=== PATIENT | female | born 1950 | race Caucasian/White ===

== ENCOUNTER 2022-08-26 14:05 | Outpatient (CLI) | payer MEDICARE, SELFPAY ==
--- NOTE | 2022-08-26 14:30 | MR_ITS ---
[facility] [address] [facility] [address] Phone:?[phone] Fax:?[phone] Referring Physician Information: Rodney Carrero [address] [facility] [address] Phone:?[phone] Fax:?[phone] Patient:?Taylor Cat D.O.B:?1950 Sex:?Female Phone:?[phone] [facility] MRN:?[id number] Exam Date:?08/26/2022 ? EXAM: MRI of the RIGHT SHOULDER, without contrast CLINICAL: Right shoulder pain and decreased range of motion. Evaluate for rotator cuff tear and adhesive capsulitis. COMPARISONS: None available. TECHNICAL: MRI sequences of the right shoulder: Axials: PD, PDFS Coronals: PD, T2FS Sagittals: PDFS, T2 SEDATION: None. CONTRAST: None. FINDINGS: Rotator cuff: Supraspinatus/Infraspinatus: Mild to moderate tendinosis of the distal supraspinatus tendon with high-grade partial interstitial/articular surface tearing of the distal supraspinatus tendon on coronal series 4 image 9-10 involving approximately 70% of the tendon thickness. Mild to moderate tendinosis with mild partial interstitial tearing of the distal infraspinatus tendon. No significant fatty atrophy of the muscle bellies. Teres minor: No tendinosis, tear or atrophy. Subscapularis: No tendinosis, tear or atrophy. Bursae: Subacromial-subdeltoid: Mild bursitis. Subcoracoid: No convincing subcoracoid bursal thickening/bursitis. Coracoacromial arch: Acromion morphology: Type II and laterally downsloping. No os acromiale. Acromiohumeral space: Mildly narrowed. Coracohumeral space: Within normal limits. Biceps tendon, long head: Mild tendinosis of the intra-articular tendon. No evidence of significant tendon tear or displacement. Glenohumeral joint: Physiologic volume of joint fluid. Articular cartilage: Mild glenohumeral chondral thinning without discrete chondral defects identified. Capsule: No convincing evidence of capsular thickening or injury. Labrum: There is degenerative attenuation of the posterior as well as the inferior labrum. Mild degenerative fraying of the superior labrum. No perilabral cyst identified. Bones: No suspicious marrow signal alteration, fracture or dislocation. Acromioclavicular joint: Minimal changes of arthrosis. No AC joint injury/widening. IMPRESSION: 1. Mild to moderate tendinosis with superimposed partial tearing of the distal supraspinatus and infraspinatus tendons as above. 2. Mild subacromial/subdeltoid bursitis. 3. Mild tendinosis of the intra-articular long head biceps tendon. 4. Degenerative changes of the glenoid labrum. 5. Minimal AC joint arthrosis. JCZ Electronically signed on 08/27/2022 7:40:00 AM by Jose Maria Forrester D.O.
== END 2022-08-26 14:06 | disposition home or self-care (01) ==
PROVIDERS: PCP Physician Assistant Medical; Visit Provider Physician Assistant Medical
DX: M25.511 Pain in right shoulder (principal); M75.101 Unspecified rotator cuff tear or rupture of right shoulder, not specified as traumatic; M19.011 Primary osteoarthritis, right shoulder; M75.51 Bursitis of right shoulder
CPT/HCPCS: 73221

== ENCOUNTER 2022-09-11 16:47 | Outpatient (CLI) | payer MEDICARE, SELFPAY ==
[2022-09-11 23:24] LABS: Vitamin B12* 816 pg/mL (243-894)
== END 2022-09-11 16:48 | disposition home or self-care (01) ==
PROVIDERS: PCP Physician Assistant Medical; Visit Provider Physician Assistant Medical
DX: D64.9 Anemia, unspecified (principal)
CPT/HCPCS: 82607; 83540; 83550

== ENCOUNTER 2022-09-16 09:27 | Outpatient (CLI) | payer MEDICARE, SELFPAY ==
[2022-09-16 13:11] LABS: Iron* 127 ug/dL (37-170)
[2022-09-16 13:20] LABS: Percent Iron Saturation 38 % (20-50); Total Iron Binding Capacity 338 ug/dL (265-497)
== END 2022-09-16 09:28 | disposition home or self-care (01) ==
PROVIDERS: PCP Physician Assistant Medical; Visit Provider Physician Assistant Medical
DX: D64.9 Anemia, unspecified (principal)
CPT/HCPCS: 83540; 83550

== ENCOUNTER 2022-09-26 09:22 | Day surgery (SDC) | payer MEDICARE, SELFPAY ==
[2022-09-26] VITALS (13 sets, daily range): BP systolic 124–149; BP diastolic 61–75; PULSE 75–86; RESP 16–20; TEMP 36.2–37.4; O2SAT 94–98; BMI 20.2
[2022-09-26] MEDS: LACTATED RINGERS 1000 ML 1,000 ML 100 ML IV ×2 (10:00→13:04)
[2022-09-26] MEDS: MIDAZOLAM HCL 1 MG/ML inj IVP (10:27)
[2022-09-26] MEDS: fentaNYL 100 MCG/2 ML inj IVP (10:27)
[2022-09-26] MEDS: SODIUM CHLORIDE 0.9 % (FLUSH) 10 ML SYRINGE IVF (10:35)
--- NOTE | 2022-09-26 10:36 | SUR.PREOP ---
home covid test negative
--- NOTE | 2022-09-26 11:30 | SUR.PREOP ---
TIME?OUT:?1124, right shoulder PT/RN/MDA?VERIFICATION?OF?SURGICAL?SITE,?PROCEDURE,?AND?CONSENT OBTAINED?PRIOR?TO?INVASIVE?PROCEDURE.
[2022-09-26] MEDS: CEFAZOLIN 2 GM in 0.9 % SODIUM CHLORIDE Mini-bag 100 ML IVPB (11:55)
--- NOTE | 2022-09-26 13:16 | P.ORPRC_ITS ---
Procedure Note Date of procedure: 09/26/22 Procedure: PREOPERATIVE DIAGNOSES: 1. Right shoulder rotator cuff tear. 2. Right shoulder AC degenerative joint disease, moderate-severe 3. Right shoulder subacromial impingement syndrome. POSTOPERATIVE DIAGNOSES: 1. Right shoulder rotator cuff tear - supraspinatus high-grade partial- thickness tear 2. Right shoulder AC degenerative joint disease, moderate-severe 3. Right shoulder anterior and superior degenerative labral fraying and tearing 4. Right shoulder low-grade partial-thickness subscapularis tearing 5. Right shoulder subacromial impingement syndrome. NAME OF OPERATION: 1. Right shoulder arthroscopic rotator cuff repair - 1 medial and 1 lateral anchor for the supraspinatus tear 2. Right shoulder arthroscopic distal clavicle excision 3. Right shoulder arthroscopic extensive glenohumeral debridement 4. Right shoulder arthroscopic bursectomy, subacromial decompression/partial acromioplasty. SURGEON: Pete Sauer MD [employer] SUPERVISOR: Ramone Bustillo PA-C. Of note, a skilled sociology research assistant was critical for this case to aide in patient positioning, suture manipulation, arm positioning, instrument positioning, and closure. ANESTHESIA: General plus preoperative supraclavicular block. EBL: Less than 25 mL IMPLANTS: Arthrex 2.6 mm FiberTak RC 0 (x1); 5.5 mm BioComposite SwiveLock suture anchor (x1) COMPLICATIONS: None evident INDICATIONS: The patient is a pleasant, 72-year-old female who has experienced right shoulder pain that has been increasing in recent time. Physical exam and imaging were consistent with a rotator cuff tear. Given their findings, as well as the weakness and pain, and inadequate response to nonoperative management, recommendation was made for surgery. FINDINGS: Exam under anesthesia revealed stable shoulder with excellent range of motion. The diagnostic arthroscopy revealed healthy chondral surfaces of the glenohumeral joint. The Subscapularis tendon was torn in a low-grade partial- thickness manner and its upper border on the deep surface only. Majority the tissue was clearly still intact and selby. The long head of the biceps tendon was intact. The superior rotator cuff tendon was found to be torn and high- grade partial-thickness manner more so on the deep surface but to some degree in the superficial/bursal surface as well. The labrum was degeneratively frayed in the anterior and superior aspects. No loose bodies were identified within the pouch or subscapularis recess. PROCEDURE: Following a thorough discussion of risks, benefits, and alternatives, consent was obtained and the right shoulder was marked. The patient was brought to the operating room and placed supine on the operating table. Induction of anesthesia was completed after preoperative supraclavicular block was administered in preop holding. Appropriate time out was performed identifying proper patient, site, and procedure. 2 g IV Ancef was administered within 1 hour of incision preoperatively. The right upper extremity was prepped and draped in the appropriate sterile fashion using ChloraPrep prep. This was after the patient was positioned in the beach chair with their head in neutral alignment and all bony prominences well padded. The shoulder was insufflated with 20mL of normal saline via an 18g spinal needle from a posterior approach. An 11 blade skin incision allowed a blunt trochar to be inserted and diagnostic arthroscopy to be performed with the findings as noted above. An anterior portal was established with an outside in technique. This allowed the probe to be inserted and confirm the diagnostic arthroscopic findings. The shaver was then inserted and allowed debridement of the anterior and superior labrum as well as the deep surface of the subscapularis rotator cuff low-grade partial-thickness tearing. In the humeral lesser tuberosity bone was also debrided mildly to try to stimulate healing for this low-grade partial-thickness subscap tear. Following this, the upper border subscapularis was probed and found to be stable otherwise. Thereafter, the subacromial space was entered. Here, a complete bursectomy and partial acromioplasty/subacromial decompression was performed with a combination of radiofrequency ablator, the shaver, and a 5.5 mm bur. Additionally, distal clavicle excision was performed with the bur. 8 mm of distal clavicle was resected based on the with of our bur. Further inspection of the supraspinatus and infraspinatus rotator cuff was performed. This identified the tear as noted above. The margins of the tear were debrided, and the greater tuberosity was debrided with a combination of the apollo cautery, shaver, and bur on reverse setting. [After gentle decortication, FiberTak RC was placed along the medial row following debridement of the high-grade partial-thickness tear. The 4 tails were passed independently and all 4 tails were brought to a single 5.5 mm anchor laterally with excellent footprint compression across the greater tuberosity. The shoulder was placed through range of motion and found to be stable. The rotator cuff was re-probed and found to be stable. Instruments were removed. Excess fluid was drained, closure performed with 4-0 Monocryl and Steri-Strips. Dressings were applied. Sling was applied. The patient was awoken from anesthesia and transferred to the PACU in stable condition. A skilled sociology research assistant was critical for this case to aid in patient positioning, limb positioning, skill to manipulate arthroscopic instruments and camera, suture management, patient safety, and closure. PLAN: 1. Elbow, forearm, wrist and digit range of motion as tolerated. 2. Encouraged ice. 3. Percocet for pain as needed. 4. Sling at all times except for ROM and showering. 5. Follow up with PA visit in 1-2 weeks for wound check. Initiate physical therapy following that visit for passive range of motion. Initiate active assisted range of motion at 2-3 weeks. May do pendulums now.
--- NOTE | 2022-09-26 13:22 | W.PM.NB ---
Nerve Block Nerve Block Time Seen by Provider: 11:29 Date Seen: 09/26/22 Type of block requested by surgeon for post-operative analgesia: supraclavicular Side: right Time out performed: Yes Verification of patient name: Yes Verification of date of : Yes Site marking: site marked Name of person performing procedure: Chepe Continuous monitoring Was continuous monitoring of O2 sat, B/P, quality assurance monitor body, recorded every 15 minutes?: Yes Procedure Checklist: sterile prep, needles and gloves Ultrasound guided. Images saved: Yes Medications given in 5ml increments after negative aspiration: Ropivicaine %: 0.5 mL: 20 Needle gauge: 22 Decadron (mg): 10 Precedex (mcg): 25 Patient tolerated procedure well: Yes Block Charges Block Charge (with Pro Fee): Brachial Plexus Use of Ultrasound Machine for Block: Yes- US Guidance/pain block
--- NOTE | 2022-09-26 13:28 | W.ANESCHARGE ---
Anesthesia Charges Start Date/Time Anesthesia Start Date: 09/26/22 Anesthesia Start Time: 11:44 Stop Date/Time Anesthesia Stop Date: 09/26/22 Anesthesia Stop Time: 13:26 Summary Emergency: No Extremes of Age: Over 72-CPT [address]
== END 2022-09-26 15:02 | disposition home or self-care (01) ==
PROVIDERS: PCP Physician Assistant Medical; Visit Provider Orthopaedic Surgery Sports Medicine
PROC: (CPT 29805; principal; 2022-09-26 11:30)
DX: M75.101 Unspecified rotator cuff tear or rupture of right shoulder, not specified as traumatic (principal); M19.011 Primary osteoarthritis, right shoulder; M75.41 Impingement syndrome of right shoulder; S43.431A Superior glenoid labrum lesion of right shoulder, initial encounter
CPT/HCPCS: 29827; 29826; 29823; 29824; 01630; 64415; 76942; 99100; C1713; J0330; J0690; J1100; J2250; J2370; J2405; J2704; J2795; J2930; J3010; J7120

== ENCOUNTER 2022-10-04 11:02 | Emergency (ER) | payer MEDICARE, SELFPAY ==
[2022-10-04 11:11] VITALS: BP 149/65; PULSE 85; RESP 18; TEMP 36; O2SAT 98; BMI 20.5
--- NOTE | 2022-10-04 11:59 | ED_ITS ---
HPI - General Adult General Chief complaint: Edema Stated complaint: Both lower extremities swollen post surgery Time Seen by Provider: 10/04/22 11:15 History of Present Illness HPI narrative: This 72-year-old female comes in with concern about some bilateral pedal edema over the past few days. She had a rotator cuff repair done on her right shoulder about a week ago. Her activity has decreased some in this time of recovery. She does not have a history of heart failure. She does have a history of lupus and is taking prednisone. She has some concern about her kidney function but states that it has been doing well over the past 25 years. She had her blood checked about a month ago and her creatinine was 0.8. She does not report any chest pain or shortness of breath. Related Data Home Medications Medication Instructions Recorded Confirmed estradiol 0.5 mg tablet 0.5 mg PO QDAY 08/20/22 10/03/22 prednisone 5 mg tablet 15 mg PO QDAY 08/20/22 10/03/22 progesterone micronized 100 mg 100 mg PO QAM 08/20/22 10/03/22 capsule Previous Rx's Medication Instructions Recorded ondansetron 4 mg disintegrating 4 mg PO Q8H #15 tabs 09/26/22 tablet oxycodone-acetaminophen 5 mg-325 1 tab PO Q4-8H PRN pain #15 tabs 09/26/22 mg tablet (Percocet) furosemide 20 mg tablet (Lasix) 20 mg PO DAILY #10 tabs 10/04/22 Allergies Allergy/AdvReac Type Severity Reaction Status Date / Time codeine AdvReac Unknown Nausea Verified 09/26/22 10:03 Review of Systems Status of ROS: Reports: 10 or more systems reviewed and unremarkable except as noted in History and below Narrative: Constitutional: No fevers, no weight gain or loss. Eyes: No discharge. No vision changes. HENT: No congestion, no sore throat, no ear pain. Cardiovascular: No chest pain, no palpitations. Respiratory: No shortness of breath, no wheezes, no cough. Gastrointestinal: No abdominal pain, no vomiting, no diarrhea. Genitourinary: No dysuria, no hematuria. Musculoskeletal: Right shoulder is in a sling status post surgery. Skin: No rashes, no pruritis. Neurological: No dizziness, weakness, sensory change, speech change. Endo/Heme/Allergies: No bruising or bleeding. No polydipsia. Pysch: no suicidality, no anxiety, no insomnia. All other systems reviewed and are negative. PFSH PFSH Surgical History (Updated 09/29/22 @ 10:19 by Kaila Valdez) Hx of fusion of cervical spine (~2019) Status post arthroscopy of right shoulder (09/26/22) Family History (Updated 08/20/22 @ 18:14 by Alexa Doss PA-C) Sister Colon cancer, Onset Age: 50 Father Prostate cancer Mother Heart disease Family/Other Heart disease Social History Smoking Status: Never smoker How often do you have a drink containing alcohol: never AUDIT-C Alcohol total score: 0 Non-prescribed substance use: denies use Caffeine: Yes Exam Narrative: Exam Narrative: Constitutional: Well-developed, well-nourished, no acute distress. HEENT: Normocephalic, atraumatic. Neck: Normal range of motion. Nontender. Supple. Heart: Regular. No murmurs. Normal rate. Intact distal pulses. Lungs: Clear to auscultation. No chest discomfort. No wheezes, rhonchi, or rales. Abdomen: Normal bowel sounds. Nontender. No rebound tenderness. Genitalia: Deferred. Back: No midline tenderness. Normal range of motion. Extremities: Right shoulder is in a sling status post surgery. Mild pedal edema bilaterally. Skin: Intact. No rash. Warm. No erythema or pallor. Neurologic: No altered sensation. No weakness. Alert and oriented. Psychiatric: No suicidality. No anxiety or depression. No insomnia. Nursing notes and vitals signs are reviewed. Const: Vital Signs, click to edit/add: Vital Signs - 24 hr 10/04/22 11:11 Temperature 96.8 F L Pulse Rate [Right Pulse Oximeter] 85 Respiratory Rate 18 Blood Pressure [Ri ght Upper Arm] 149/65 H Pulse Oximetry 98 Oxygen Delivery Me thod Room Air Course Vital Signs Vital signs: Initial Vital Signs Temperature 96.8 F L 10/04/22 11:11 Temperature Source Temporal Artery Scan 10/04/22 11:11 Pulse Rate 85 10/04/22 11:11 Respiratory Rate 18 10/04/22 11:11 Blood Pressure 149/65 H 10/04/22 11:11 Blood Pressure Mean 93 10/04/22 11:11 Blood Pressure Position Sitting 10/04/22 11:11 Pulse Oximetry 98 10/04/22 11:11 Oxygen Delivery Method 10/04/22 11:11 Vital Signs Temperature 96.8 F L 10/04/22 11:11 Pulse Rate 85 10/04/22 11:11 Respiratory Rate 18 10/04/22 11:11 Blood Pressure 149/65 H 10/04/22 11:11 Pulse Oximetry 98 10/04/22 11:11 Oxygen Delivery Method 10/04/22 11:11 Temperature 96.8 F L 10/04/22 11:11 Pulse Rate 85 10/04/22 11:11 Respiratory Rate 18 10/04/22 11:11 Blood Pressure 149/65 H 10/04/22 11:11 Pulse Oximetry 98 10/04/22 11:11 Oxygen Delivery Method 10/04/22 11:11 Medical Decision Making MDM Narrative Medical decision making narrative: This patient comes in with concern about some fluid retention in her lower extremities. She has rather mild pedal edema bilaterally. She does not have any other complaints beyond her typical recovery from shoulder surgery. I did offer checking labs and this was declined in a process of shared decision making. She has had normal renal function and most recent lab value was in normal range. She is not showing signs of heart failure. I did prescribe a few tablets of Lasix to assist in diuresis. I encouraged activity and keeping her legs elevated when reclining. Discharge Plan Discharge Clinical Impression: Pedal edema Patient Disposition: Home, Self-Care Condition: Stable Additional Instructions: Take medication as needed and indicated for diuresis. Follow up with MD as scheduled or return if worsening. Prescriptions: New furosemide [Lasix] 20 mg tablet 20 mg PO DAILY Qty: 10 2RF No Action prednisone 5 mg tablet 15 mg PO QDAY progesterone micronized 100 mg capsule 100 mg PO QAM Rx Instructions: off 7 days; repeat cycle estradiol 0.5 mg tablet 0.5 mg PO QDAY Rx Instructions: off 5 days; repeat cycle oxycodone-acetaminophen [Percocet] 5-325 mg tablet 1 tab PO Q4-8H PRN (Reason: pain) Qty: 15 0RF ondansetron 4 mg tablet,disintegrating 4 mg PO Q8H Qty: 15 0RF Follow Up/Referrals: Alexa Doss PA-C [Primary Care Provider] - Stand Alone Forms: [employer] Info Instructions
[2022-10-04 12:09] VITALS: BP 149/65; PULSE 85; RESP 18; TEMP 36
== END 2022-10-04 12:10 | disposition home or self-care (01) ==
PROVIDERS: Emergency Provider Emergency Medicine Emergency Medical Services; PCP Physician Assistant Medical
DX: R60.0 Localized edema (principal)
CPT/HCPCS: 99283; 99284

== ENCOUNTER 2022-10-13 12:39 | Outpatient (CLI) | payer MEDICARE, SELFPAY ==
--- NOTE | 2022-10-13 13:00 | CRLHL7_ITS ---
For Patients: As a result of the Century Cures Act, medical imaging exams and procedure reports are released immediately into your electronic medical record. You may view this report before your referring provider. If you have questions, please contact your health care provider. INDICATION: TECHNIQUE: Ultrasound venous duplex lower extremity bilateral. Compression venous exam was performed using yap scale, color Doppler, and spectral Doppler imaging. COMPARISON: None. FINDINGS: Sonographic imaging demonstrates the common femoral, deep femoral, superficial femoral, popliteal, posterior tibial and greater saphenous veins to be fully compressible with normal color Doppler blood flow in both lower extremities. IMPRESSION: Normal bilateral lower extremity venous ultrasound, no sign of deep venous thrombosis. Dictated by: Eliu Bruno MD @ 10/14/2022 09:25:31 (Electronically Signed)
== END 2022-10-13 12:40 | disposition home or self-care (01) ==
LOC: US 12:40
PROVIDERS: PCP Physician Assistant Medical; Visit Provider Physician Assistant Medical
DX: R60.0 Localized edema (principal)
CPT/HCPCS: 93970

== ENCOUNTER 2022-12-17 11:15 | Outpatient (RCR) | payer MEDICARE, SELFPAY ==
--- NOTE | 2022-10-16 09:01 | PT.OPE ---
[facility] Outpatient Eval PT [facility] Outpatient Eval Start: 10/14/22 10:23 Freq: Status: Active Protocol: Document 10/14/22 10:24 BMS (Rec: 10/14/22 18:19 BMS [id number]) E-signed By Ratna Willard PT Physical Therapy Outpatient Evaluation Insurance Information Recert Due Date 01/11/23 Insurance Information/Comments medicare advantage Provider Fax Number internal Medical Diagnosis post procedural Z98.890 s/p arthroscopy of R shoulder Treating Diagnosis R shoulder pain M25.511 Referring MD Kenyetta Mayorga PA-C (internal referral) Subjective Subjective was in [place] caring for very active 20# kimber, Jun 2022 , for 5 days. went to ED bc of pain in shoulder . have hx of neck fusion thought it was that. they have been wanting to schedule fusion of C 4-5 now but am doing out of pocket stem cell treatments that has staved that off for 5 years. pain about 5/10, trying not to take anything for pain, use ice some. am doing pendulums but they hurt. had surgery R RCR, DCE on 09/26. went back to ED on due to swelling in both feet and legs, have lupus and kidney disease they monitor so wanted to have it checked. 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 Precautions Treatment Precautions/Contraindications R RCR DCE arthroscopy hx cadaver fusion 1999 C67 now want to fuse C4-5 but patient has been doing stem cell treatments out of pocket lupus - prednisone for 40 years. kidney disease Therapy Limitations/Systems Review Other Medical Problem Objective Range of Motion neck rotation and ext limited R shoulder flex before and after 95/120 abduct 60/80 ER 10/20 IR to tummy elbow ext lack 10/lack 5 Strength not assessed due to recent surgery Palpation mild tender to mod in pec/ant shoulder and into RC. Posture head forward, some scap rolling forward, UE in sling Sensation/Reflexes appears intact to light touch Other/Pertinent Objective incisions clean and healing well under glue . Assessment Assessment/Impression Patient is very pleasant 72 yo female referred to rehab services s/p R RCR DCE on 09/26. Initial injury specific event not known, noted in Jun 2022 while helping with 20# kimber. gradually got worse , thought it was from her neck as she has hx of cervical fusion and recommendation to fuse 2 more levels. Thought to be shoulder, went to ortho. Did present to ED s/p surgery due to increased B edema, was cleared for DVT. Has + medical hx of lupus (prednisone x 40 years), kidney dysfunction, cspine fusion C6-7 and receiving stem cell treatments due to ongoing neck pain. She is normally very active and looks forward to resuming prior level of function independently - all functional use of dominant R arm is severely limited at this time. Patient is appropriate for skilled physical therapy to restore ROM functional strength and use of dominant arm. Primary Functional Limitations all use of dominant arm, sleep , pain Plan of Care Rehabilitation Potential Good Rehabilitation Potential Comments very motivated Physical Therapy Goals STG meet 2-3 weeks 1) Pt demo independence with HEP and self care/home management techniques for shoulder/elbow pain, increased ROM and strength for return to previous level of function. 2) Pt demo PROM/AAROM WFL for advancement to next stage of recovery/rehab. 3) Advance HEP as tolerated and instructed at return to MD and according to post-op protocol LTG meet 8-12 weeks 1)Pt demo ability to don/doff clothes including shirts and coats without increased pain. 2) Pt demonstrate ability to lift 10# without contortion or substitution patterns of UE or trunk for carrying gallon of milk etc. (if within MD restrictions) 3) Pt demo ROM WNL combined flex, abduct and ER to perform grooming and hair brushing. 4) Pt report ability to sleep without waking from pain >2 nights per week in preferred position using appropriate positioning. 5) Pt demo ability to perform all grooming and hygiene tasks without modification or pain. Coordination/Communication With Referral Source Treatment Plan/Direct Interventions Electrical Stimulation,Ice/ Cold/Vasopneumatic,Manual Therapy,Neuromuscular Re-ed, Self-Care/Home Management, Therapeutic Activities, Therapeutic Exercises Frequency/Duration 1-2x/ week x 12 weeks Patient Will Be Discharged From Therapy Completion of LTG(s),Skills Plateau,Independent w/HEP, Independently Progressing Evaluation Billing Untimed Code Treatment Minutes 23 Complexity Moderate Certification Information Initial Certification Date 10/14/22 Ending Certification Date 01/11/23 Provider Signature Shows Agreement With POC & Medical Necessity Physician Signature & Date Requested Please Sign/Date Here Physician Comment/Change : Physician NPI Number [id number]
--- NOTE | 2022-11-19 12:04 | PT.OPDN ---
[facility] Daily Note [facility] Daily Note Start: 10/14/22 10:23 Freq: Status: Active Protocol: Document 11/19/22 11:07 CJT (Rec: 11/19/22 12:04 CJT [id number]) E-signed By Eleazar Medina, PT PT OP Daily Progress Note Visit Information Note Type Recert/Progress Note Visit Number 10 Insurance Authorized Visits 100 Physician Authorized Visits eval and treat Insurance Information Recert Due Date 01/11/23 Insurance Information/Comments medicare advantage Medical Diagnosis Z98.890 postprocedural Treating Diagnosis R shoulder pain M25. 511 Referring MD Kenyetta Mayorga PA-C (internal referral) Subjective Subjective Taylor has been reducing her use of her sling over the past week or so and notes that this going very well, better than expected. Has minimal soreness and stiffness. Has most pain/discomfort with shoulder flexion stretch at wall. 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 kidney disease Home Exercise Home Exercise Comments Isometric: [id number] Objective Other/Pertinent Objective R shoulder AROM: 132/-/L2/20 R shoulder PROM: 145/148/45/30 Patient Instructed in Risks/Benefits Yes Therapeutic Exercise Therapeutic Exercise Minutes (minutes) 35 Therapeutic Exercise: To Restore Pulleys: flexion, scaption, Functional Status abduction x 20 ea UBE x 4 minutes Shoulder flexion in standing to 90 2 x 5 Short lever arm flexion, full range 2 X 5 Bent rows 2 x 10 Bent horizontal abduction 2 x 10 Bent shoulder extensions 2 x 10 Wall ball rolls in neutral, at 90 x 30 ea Shoulder flexion ABC's at 90 Posterior capsule stretch 2 x 30 Shoulder flexion stretch at wall 2 x 30 Doorway ER stretch x 30 IR stretch behind back x 30 Manual Therapy Techniques Manual Therapy Minutes (minutes) 8 Manual Therapy Techniques STM/MFR to B suboccipitals, scalenes, SCM, cervical paraspinals, pec minor/major, UT, levator, bicep mm belly, and CET to reduce tissue tension and improve extensibility. Grade II AP/I mobilizations to R GHJ to stretch joint capsule and facilitate increased ROM Treatment Minutes Timed Code Treatment Minutes 43 Total Treatment Time 43 Billing Units Manual Therapy Units 1 Therapeutic Exercise Units 2 Assessment/Impression Assessment/Impression Taylor is progressing very well in therapy thus far and is managing her pain quite well. We recently progressed to isometric strengthening and shoulder AROM exercises and pt is having no pain during and very minimal residual soreness after. Soreness typically resolves within 12-24 hours. Her ROM remains limited but is on track for proper progression. WE did try some higher grade mobilizations today but this did not seem to help with her shoulder elevation ROM. We will continue to progress her strength appropriately and focus on increasing her ROM back to normal range as able. Recommend continued PT services to address deficits and return pt to highest level of function. Plan of Care Physical Therapy Goals STG meet 2-3 weeks 1) Pt demo independence with HEP and self care/home management techniques for shoulder/elbow pain, increased ROM and strength for return to previous level of function. MET 2) Pt demo PROM/AAROM WFL for advancement to next stage of recovery/rehab. MET 3) Advance HEP as tolerated and instructed at return to MD and according to post-op protocol MET LTG meet 8-12 weeks 1)Pt demo ability to don/doff clothes including shirts and coats without increased pain. MET 2) Pt demonstrate ability to lift 10# without contortion or substitution patterns of UE or trunk for carrying gallon of milk etc. (if within MD restrictions) 3) Pt demo ROM WNL combined flex, abduct and ER to perform grooming and hair brushing. 4) Pt report ability to sleep without waking from pain >2 nights per week in preferred position using appropriate positioning. 5) Pt demo ability to perform all grooming and hygiene tasks without modification or pain. Daily Plan of Care Continue per POC Recertification Information Provider [employer] Agreement With POC & Medical Necessity
--- NOTE | 2022-12-17 12:35 | PT.OPDN ---
[facility] Daily Note [facility] Daily Note Start: 10/14/22 10:23 Freq: Status: Active Protocol: Document 12/17/22 11:01 CJT (Rec: 12/17/22 12:35 CJT [id number]) E-signed By Eleazar Medina, PT PT OP Daily Progress Note Visit Information Note Type Daily Note Visit Number 15 Insurance Authorized Visits 100 Physician Authorized Visits eval and treat Insurance Information Recert Due Date 01/11/23 Insurance Information/Comments medicare advantage Medical Diagnosis Z98.890 postprocedural Treating Diagnosis R shoulder pain M25. 511 Referring MD Kenyetta Mayorga PA-C (internal referral) Subjective Subjective Pt doing well. Notes that her shoulder ROM is continuing to improve. Pt leaves for [place] on Thursday and will stay with her daughter for several months. 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 kidney disease Home Exercise Home Exercise Comments Access Code: [email or web address] URL: [email or web address]/ Date: 12/17/2022 Prepared by: Eleazar Medina Exercises - Standing Shoulder Posterior Capsule Stretch - 1 x daily - 7 x weekly - 45 seconds hold - Standing Shoulder Internal Rotation Stretch with Hands Behind Back - 1 x daily - 7 x weekly - 45 seconds hold - Child's Pose Stretch - 1 x daily - 7 x weekly - 2 sets - 45 seconds hold - Standing Overhead Triceps Stretch - 1 x daily - 7 x weekly - 2 sets - 45 seconds hold - Shoulder ER Stretch in Abduction - 1 x daily - 7 x weekly - 45 seconds hold - Standing Sleeper Stretch at Wall - 1 x daily - 7 x weekly - 45 seconds hold - Shoulder External Rotation with Anchored Resistance - 1 x daily - 3-4 x weekly - 3 sets - 10-15 reps - Shoulder Internal Rotation with Resistance - 1 x daily - 3-4 x weekly - 3 sets - 10-15 reps - Wall Push Up - 1 x daily - 3-4 x weekly - 3 sets - 8-12 reps - Sidelying Shoulder ER with Towel and Dumbbell - 1 x daily - 3-4 x weekly - 3 sets - 10 reps - Bent Over Single Arm Shoulder Row with Dumbbell - 1 x daily - 3-4 x weekly - 3 sets - 8-12 reps - Standing Shoulder Flexion to 90 Degrees with Dumbbells - 1 x daily - 3-4 x weekly - 3 sets - 8-12 reps - Shoulder Abduction with Dumbbells - Palms Down - 1 x daily - 3-4 x weekly - 3 sets - 8-12 reps Objective Other/Pertinent Objective R shoulder AROM: 160/170/65/40 R shoulder PROM: 170/180/80/70 Strength Flexion: 4+/5 MMT Abduction: 4+/5 IR: 5/5 ER: 5/5 Empty Can: 4+/5 Patient Instructed in Risks/Benefits Yes Therapeutic Exercise Therapeutic Exercise Minutes (minutes) 48 Therapeutic Exercise: To Restore UBE x 6 minutes Functional Status Pulleys into flexion, scaption , abduction Shoulder ER stretch at 90 degrees abduction x 60 Wall shoulder flexion stretch x 60 Child's pose x 60 IR stretch behind back x 45 Shoulder flexion 4# 2 x 10 Shoulder abduction 2# x 10 Rows with purple band 2 x 10 Bent rows, 2 x 10 ea 10# Short lever arm flexion, 2# 2 x 10 Shoulder ER with dumbbell in S /L, 2# 2 x 15 Shoulder ER in standing with band 2 x 15 Shoulder IR in standing with band 2 x 15 Wall push-up 2 x 10 Treatment Minutes Timed Code Treatment Minutes 48 Total Treatment Time 48 Billing Units Therapeutic Exercise Units 3 Assessment/Impression Assessment/Impression Taylor has progressed very well in therapy thus far and is now 12 weeks post-op. Pts ROM is nearly full, with deficits still noted in R shoulder flexion and IR. She should continue to perform her stretches daily and hold for 45-60 seconds with each of her stretches. Her strength is nearly full as well and shoulder strength is grossly graded as 4+/5 MMT at this time. Today we progressed each of her strength exercises and reviewed for correct performance. A printout of her new exercises was issued for I performance. We discussed that she should perform several of her strength exercises on alternating days, and these exercises have been highlighted so that she may keep them to avoid overtraining and development of tendonitis. She should continue to use her R arm for daily tasks and chores and should continue to avoid lifting greater than 5lbs overhead with her R arm. We also discussed that it takes about 1 year after surgery for a typical patient's shoulder to feel normal again and she should stay consistent with her HEP until she reaches 6 months post-op, and then gradually reduce the frequency of her exercises. Pt gives verbal understanding to these instructions. Pt will be discharged from therapy at this time. She does plan to continue her therapy when she arrives in [place] at [facility] in [place], [place]. Plan of Care Physical Therapy Goals STG meet 2-3 weeks 1) Pt demo independence with HEP and self care/home management techniques for shoulder/elbow pain, increased ROM and strength for return to previous level of function. MET 2) Pt demo PROM/AAROM WFL for advancement to next stage of recovery/rehab. MET 3) Advance HEP as tolerated and instructed at return to MD and according to post-op protocol MET LTG meet 8-12 weeks 1)Pt demo ability to don/doff clothes including shirts and coats without increased pain. MET 2) Pt demonstrate ability to lift 10# without contortion or substitution patterns of UE or trunk for carrying gallon of milk etc. (if within MD restrictions) MET 3) Pt demo ROM WNL combined flex, abduct and ER to perform grooming and hair brushing. MET 4) Pt report ability to sleep without waking from pain >2 nights per week in preferred position using appropriate positioning. MET 5) Pt demo ability to perform all grooming and hygiene tasks without modification or pain. MET Daily Plan of Care Discharge Recertification Information Provider [employer] Agreement With POC & Medical Necessity
== END 2022-12-22 14:46 | disposition home or self-care (01) ==
PROVIDERS: PCP Physician Assistant Medical; Visit Provider Physician Assistant Surgical
DX: M25.511 Pain in right shoulder (principal); Z98.890 Other specified postprocedural states; Z51.89 Encounter for other specified aftercare
CPT/HCPCS: 97110; 97140; 97162

== ENCOUNTER 2023-08-27 13:30 | Outpatient (CLI) | payer MEDICARE, SELFPAY | END 2023-08-27 13:31 | disposition home or self-care (01) | LOC: LKVREF 13:33 | PROVIDERS: PCP Physician Assistant Medical; Visit Provider Physician Assistant Medical | DX: R51.9 Headache, unspecified (principal); R68.84 Jaw pain | CPT/HCPCS: 86140 ==